=== PATIENT | female | born 1935 | race Caucasian/White ===

== ENCOUNTER 2019-02-11 14:21 | Emergency (ER) | payer MEDICARE, BC ==
--- NOTE | 2019-02-11 14:47 | EDM.PDOC ---
ED HPI GENERAL MEDICAL PROBLEM - General Chief Complaint: Upper Extremity Injury/Pain Stated Complaint: INJURED LEFT WRIST Time Seen by Provider: 02/11/19 14:25 Source of Information: Reports: Patient History Limitations: Reports: No Limitations - History of Present Illness INITIAL COMMENTS - FREE TEXT/NARRATIVE: fell landing forward today; very non specific; has pain to her left wrist; When asked what happened, she said "im an idiot". Swelling present. Happened today. Limited ROM. Strong pulse, cms intact Onset: Today Location: Reports: Upper Extremity, Left Quality: Reports: Ache, Throbbing Severity: Moderate Improves with: Reports: None Worsens with: Reports: None Left Wrist Pain Score (Numeric/FACES): 3 - Related Data Allergies Allergy/AdvReac Type Severity Reaction Status Date / Time No Known Allergies Allergy Verified 02/11/19 14:48 Home Meds: Home Meds Atenolol 02/11/19 [History] Lisinopril/Hydrochlorothiazide [Lisinopril-Hctz 20-25 mg Tab] 02/11/19 [History ] Mirtazapine 02/11/19 [History] Review of Systems - Review of Systems Review Of Systems: ROS reveals no pertinent complaints other than HPI. ED EXAM, GENERAL - Physical Exam Exam: See Below Exam Limited By: No Limitations General Appearance: Alert, WD/WN, No Apparent Distress Respiratory/Chest: No Respiratory Distress Peripheral Pulses: 4+: Radial (L), Radial (R) Extremities: Joint Swelling, Other (+radial pulse, cms intact. Limited ROM, swelling present) Neurological: Alert, Oriented, CN II-XII Intact, Normal Cognition, Normal Gait Psychiatric: Normal Affect, Normal Mood Skin Exam: Warm, Dry, Intact, Normal Color, No Rash Course - Vital Signs Last Recorded V/S: Last Vital Signs Temp 96.5 F 02/11/19 14:53 Pulse 58 L 02/11/19 14:53 Resp 16 02/11/19 14:53 BP 192/80 H 02/11/19 14:53 Pulse Ox 98 02/11/19 14:53 - Re-Assessments/Exams Free Text/Narrative Re-Assessment/Exam: 02/11/19 16:56 reviewed xray with patient Ortho splint placed to the left wrist; with mild reduction. Tolerated well. Sling applied. +cms post splint. Departure - Departure Time of Disposition: 15:23 Disposition: Home, Self-Care 01 Condition: Fair Clinical Impression: Left wrist fracture Qualifiers: Encounter type: initial encounter Fracture type: closed Qualified Code(s): S62.102A - Fracture of unspecified carpal bone, left wrist, initial encounter for closed fracture Hypertension Qualifiers: Hypertension type: unspecified Qualified Code(s): I10 - Essential (primary) hypertension - Discharge Information *PRESCRIPTION DRUG MONITORING PROGRAM REVIEWED*: Not Applicable *COPY OF PRESCRIPTION DRUG MONITORING REPORT IN PATIENT [place]: Not Applicable Instructions: Cast or Splint Care, Adult, [id number], Radial Head Fracture, [id number] Referrals: PCP,None [Primary Care Provider] - Forms: ED Department Discharge Additional Instructions: Please contact your doctor on Tuesday to let them know you have a wrist fracture; This will likely need surgery. Elevate (sling is the best way to be sure you are keeping it up) Tylenol 500 mg every 4-6 hours for pain. Ice to affected area. Do not get splint wet. [place] follow up time to see the orthopedic doctor is within the next 2-3 days. Also, your blood pressure is elevated; this can be due to the broken bone, however I do want you to follow up with your doctor. If you develop headache, blurry vision, ringing in the ears, return to the ER for further evaluation. - Problem List & Annotations (1) Left wrist fracture SNOMED Code(s): 583820221, 932568943 Code(s): S62.102A - FRACTURE OF UNSP CARPAL BONE, LEFT WRIST, INIT FOR CLOS FX Status: Acute Priority: Medium Qualifiers: Encounter type: initial encounter Fracture type: closed Qualified Code(s) : S62.102A - Fracture of unspecified carpal bone, left wrist, initial encounter for closed fracture (2) Hypertension SNOMED Code(s): 05408701 Code(s): I10 - ESSENTIAL (PRIMARY) HYPERTENSION Status: Acute Qualifiers: Hypertension type: unspecified Qualified Code(s): I10 - Essential (primary ) hypertension
--- NOTE | 2019-02-11 15:24 | CRLCR ---
INDICATION: Fall 3 views of the left wrist. Findings: Intra-articular impacted comminuted fracture of the distal radius with overlap of fracture fragments and dorsal angulation. Ulnar styloid fracture. Soft tissue swelling. Dictated by Iqra Victoria MD @ Feb 11 2019 3:21PM Signed by Dr. Iqra Victoria @ Feb 11 2019 3:22PM
== END 2019-02-11 15:44 | disposition home or self-care (01) ==
LOC: JP.ED 14:21
DX: S62.102A Fracture of unspecified carpal bone, left wrist, initial encounter for closed fracture (principal); I10 Essential (primary) hypertension; Z79.899 Other long term (current) drug therapy; W18.39XA Other fall on same level, initial encounter
CPT/HCPCS: 29125; 73110-LT; 99283; 99283-25